=== PATIENT | female | born 1950 | race Caucasian/White ===

== ENCOUNTER 2017-09-26 07:55 | Day surgery (SDC) | payer MEDICARE, OTHER ==
[~2017-09-26] VITALS: Ht 160 cm; Wt 79.9 kg
[~2017-09-26 07:55] MED LIST: AMLO5 PO; ATEN25 PO; LEVO-T50 MCG PO; TRAM50 PO
== END 2017-09-26 14:15 | disposition home or self-care (01) ==
LOC: ORSCSDS 07:55
PROVIDERS: Orthopaedic Surgery
PROC: 0LQ14ZZ Repair Right Shoulder Tendon, Percutaneous Endoscopic Approach (ICD-10-PCS; principal; 2017-09-26 08:45)
PROC: 0RNJ4ZZ Release Right Shoulder Joint, Percutaneous Endoscopic Approach (ICD-10-PCS; principal; 2017-09-26 08:45)
DX: M75.121 Complete rotator cuff tear or rupture of right shoulder, not specified as traumatic (principal); M75.41 Impingement syndrome of right shoulder; I10 Essential (primary) hypertension; Z79.899 Other long term (current) drug therapy
CPT/HCPCS: C1713; J0171; J0690; J2250; J2370; J2710; J3010; J7120

== ENCOUNTER 2021-07-01 06:05 | Day surgery (SDC) | payer MEDICARE ==
[~2021-07-01] VITALS: Ht 160 cm; Wt 72.6 kg
--- NOTE | 2021-07-01 06:46 | NUR ---
[employer] warming gown applied. Surgical site prepped with 2% Chlorhexidine cloth wipe. History, Chart, Medications and Allergies reviewed before start of procedure.Lungs clear T/O to Auscultation. Patient confirms NPO status and agrees with scheduled surgery. Pre-Op teaching done. Pt verbalizes understanding. Patient States Post-Procedure ride home has been arranged. Patient reports completing Chlorhexadine shower X2 prior to admission to hospital.
--- NOTE | 2021-07-01 11:24 | NUR ---
PT ARRIVED TO UNIT AT APROX 1115 FROM PACU. L HIP WITH DRESSING X'S 2 IS C/D/I, PT HAS FULL SENSATION. DENIES N/V, OFFERED CLEAR LIQUIDS-WILL ADVANCE TOLERATED.
--- NOTE | 2021-07-02 04:49 | NUR ---
SHIFT SUMMARY PT IS POD#1 FROM [facility]. LEFT HIP WITH TWO INCISIONS COVERED WITH GAUZE AND FOAM DRESSING. DRESSING IS C/D/I, WITHOUT DRAINAGE OR SATURATION. POLAR PACK IN PLACE. PT IS TOLERATING PAIN RATING IT A 3/10. REQUIRED ONE PRN 5MG ROXICODONE, SEE EMAR. AMBULATED 300 FEET IN HALLWAY WITH FWW/GAIT BELT/AND STAFF ASSIST FOR SAFETY. EDUCATED ON HOW TO FOLLOW POST-OP HIP PRECAUTIONS. PT DEMONSTRATED TEACH BACK AND KNOWLEDGE. VSS.
[2021-07-02 05:19] LABS: BASOPHILS ABSOLUTE AUTO 0.03 K/mm3 (0.00-0.23); BASOPHILS PERCENT AUTO 0 % (0-2); EOSINOPHILS ABSOLUTE AUTO 0.03 K/mm3 (0.00-0.68); EOSINOPHILS PERCENT AUTO 0 % (0-6); Hematocrit 33.6 % (33.0-51.0); Hemoglobin 11.3 g/dL (11.5-16.0); IMMATURE GRAN ABSOLUTE AUTO 0.06 K/mm3 (0.00-0.10); IMMATURE GRAN PERCENT AUTO 0 % (0-1); LYMPHOCYTES ABSOLUTE AUTO 1.89 K/mm3 (0.84-5.20); LYMPHOCYTES PERCENT AUTO 12 % (21-46); MONOCYTES ABSOLUTE AUTO 0.98 K/mm3 (0.16-1.47); MONOCYTES PERCENT AUTO 6 % (4-13); Mean Corpuscular HGB Conc 33.6 g/dL (31.5-36.5); Mean Corpuscular Volume 92 fL (80-100); Mean Platelet Volume 11.5 fL (9.1-12.4); NEUTROPHILS PERCENT AUTO 80 % (41-73); Platelet Count 184 K/mm3 (150-400); RDW Coefficient Variation 12.5 % (11.7-14.2); RDW Standard Deviation 42.8 fL (35.1-46.3); Red Blood Cell Count 3.64 M/mm3 (3.80-5.20); White Blood Cell Count 15.29 K/mm3 (4.00-11.30)
[2021-07-02 05:37] LABS: Anion Gap 6 mmol/L (6-16); Blood Urea Nitrogen 19 mg/dL (8-24); Bun/Creatinine Ratio 20.8 (12.0-20.0); CO2, Blood 27 mmol/L (21-32); Calcium, Blood 8.6 mg/dL (8.5-10.1); Chloride, Blood 104 mmol/L (98-108); Creatinine, Blood 0.91 mg/dL (0.40-1.00); Glomerular Filtration Rate >60 (60-); Glucose, Blood 107 mg/dL (70-99); Magnesium, Blood 1.9 mg/dL (1.6-2.4); Potassium, Blood 4.1 mmol/L (3.5-5.5); Sodium, Blood 137 mmol/L (136-145)
[2021-07-02] MEDS ORDERED: ASPIR 8181 MG PO (06:33)
[2021-07-02] MEDS ORDERED: PROM25 PO (06:50)
[2021-07-02] MEDS ORDERED: ROXICODONE5 MG PO (06:50)
--- NOTE | 2021-07-02 13:17 | NUR ---
discharge instructions reviewed with patient and patient verbalizes understanding. pt reports pain is well controlled. pt voiding clear yellow urine. hardy po food and fluids without nausea. left hip dressings dry and intact. pt verbalizes understanding of dressing change. pt is discharging to friends home and patient is in agreement with discharge plan
--- NOTE | 2021-07-02 14:04 | NUR ---
1349 discharged to home. pt denies any questions regarding discharge. discharged to home
--- NOTE | 2021-07-06 14:48 | NUR ---
07/06/21 1448 SuhasConor D VERIFICATION: INPUT REF [id number] BIOLOX CERAMIC HEAD
== END 2021-07-02 13:36 | disposition home or self-care (01) ==
LOC: ORSCMMR 06:05 → ORD 07:30 → ORSCMMR 07:30 → SURS 10:59 → ORSCMMR 07-02 13:36
PROVIDERS: Orthopaedic Surgery
PROC: 8E0YXBZ Computer Assisted Procedure of Lower Extremity (ICD-10-PCS; principal; 2021-07-01 07:30)
PROC: 0SRB0JA Replacement of Left Hip Joint with Synthetic Substitute, Uncemented, Open Approach (ICD-10-PCS; principal; 2021-07-01 07:30)
DX: M16.12 Unilateral primary osteoarthritis, left hip (principal); I10 Essential (primary) hypertension; Z79.899 Other long term (current) drug therapy
CPT/HCPCS: 36415; 72170; 80048; 83735; 85025; 97110; 97110-CQ; 97116; 97116-CQ; 97162; 97166; 97530; 97530-CQ; 97535; A9270; C1713; C1776; J0171; J0690; J0735; J1100; J1885; J2250; J2270; J2370; J2405; J2704; J2795; J3010; J7120

== ENCOUNTER 2023-04-11 09:48 | Day surgery (SDC) | payer MEDICARE ==
[~2023-04-11] VITALS: Ht 160 cm; Wt 74.7 kg
[~2023-04-11 09:48] MED LIST changes: +ASPIR 8181 MG PO; +PROM25 PO; +ROXICODONE5 MG PO
[2023-04-11 13:43] VITALS: BP 172/91
--- NOTE | 2023-04-11 14:11 | NUR ---
04/11/23 1411 ALISA ZAPATA PT STATES TAKE PAIN IS 6/10. SHE STATES PAIN IS TOLERABLE AT THIS TIME. SHE IS EATING AND DRINKING W/O DIFF. PT CONCERNED ABOUT BECOMING NAUSEATED ON THE DRIVE HOME. SCOPOLAMINE PATCH PLACED PER DR. BOONE ORDER. PT WILL BE GIVEN NORCO 5/325MG PO. PT HAS A [address] HOME[address]
== END 2023-04-11 15:09 | disposition home or self-care (01) ==
LOC: ORSCSDS 09:48
PROVIDERS: Orthopaedic Surgery
PROC: 0SBC4ZZ Excision of Right Knee Joint, Percutaneous Endoscopic Approach (ICD-10-PCS; principal; 2023-04-11 11:15)
DX: S83.241A Other tear of medial meniscus, current injury, right knee, initial encounter (principal); S83.281A Other tear of lateral meniscus, current injury, right knee, initial encounter; M16.11 Unilateral primary osteoarthritis, right hip; I10 Essential (primary) hypertension; E03.9 Hypothyroidism, unspecified; Z79.82 Long term (current) use of aspirin; Z79.899 Other long term (current) drug therapy
CPT/HCPCS: A9270; J0171; J0690; J1100; J1170; J1885; J2250; J2405; J2704; J3010; J7120